=== PATIENT | female | born 1995 | race Caucasian/White ===

== ENCOUNTER 2017-08-23 11:50 | Emergency (ER) | payer OTHER ==
[2017-08-23 11:57] VITALS: RESP 16; TEMP 97.7
--- NOTE | 2017-08-23 12:17 | CPEKG ---
Heart Rate: 85 RR Interval: 706 P-R Interval: 112 QRSD Interval: 86 QT Interval: 356 QTC Interval: 424 P [place]: 59 QRS [place]: 72 T Wave [place]: 50 EKG Severity - OTHERWISE NORMAL ECG - EKG Impression: SINUS ARRHYTHMIA, RATE [id number] Electronically Signed By: Cristobal Beebe 23-Aug-2017 13:03:42
[2017-08-23] MEDS ORDERED: NS 1,000 ML IV ONE (12:20)
--- NOTE | 2017-08-23 12:21 | EDPHY ---
H & P Stated Complaint: Dizzy x 1 wk; wants thyroid checked Source: Patient Exam Limitations: No limitations - Personal History LMP (Females 10-55): 8-14 Days Ago Current Tetanus Diphtheria and Acellular Pertussis (TDAP): Yes - Medical/Surgical History Other PMH: "thyroid issues". chronic neck pain - Social History Smoking Status: Never smoked Time Seen by Provider: 08/23/17 12:19 HPI/ROS: HPI: This is a 22-year-old female who presents with Chief Complaint: Dizzy x 1 wk; wants thyroid checked Location: head Quality: dizziness Duration: 1 week Signs and Symptoms: No fever, no neck stiffness, no headache, no vision changes , no abdominal pain, no nausea, no vomiting, no shortness of breath, positive fatigue, no chest pain Timing: Intermittent episodes Severity: [id number] Context: Patient is a local college student originally from [place] who presents with complaints of intermittent episodes of dizziness, described as lightheaded and faint, that have occurred over the last week approximately 2-3 times. no LOC/syncope. She reports that last weekend for 3 days she went to [place]. Admits to drinking excessively the 1st night and having to stay in bed all day the next day. Several days later she flew to [place] for another vacation and get admits to drinking excessively. She denies recreational drug use. She reports back in [place] before she left for school on April her TSH level was low normal and her PCP suggested repeat thyroid testing 6-8 weeks. Her last menstrual period was 2 weeks ago. Has NuvaRing in place. Denies heavy menstrual cycle. After further questioning patient does admit that prior to the episodes of dizziness occurring she feels like she is having a anxiety or panic attack as she becomes extremely short of breath, feels chest tightness accompanied by bilateral arm numbness that last for several minutes until she is able to calm herself down. Modifying Factors: None Comment: ROS: see HPI Constitutional: No fever, no chills, no weight loss Eyes: No blurred vision Respiratory: No shortness of breath, no cough Cardiovascular: No chest pain Gastrointestinal: No nausea, no vomiting, no diarrhea Genitourinary: No dysuria Extremities: No myalgias Neurologic: No weakness, no numbness Skin: No rashes Hematologic: No bruising, no bleeding MEDICAL/SURGICAL/SOCIAL HISTORY: Medical history: Generally healthy. Does not take any regular medications. Surgical history: Denies Social history: Local college student CONSTITUTIONAL: Extremely well-appearing young adult white female, awake and alert, no obvious distress HEENT: Atraumatic and normocephalic, PERRL, EOMI. Tympanic membranes clear. Oropharynx clear, no exudate and moist pink mucosa. Airway patent. No lymphadenopathy. No meningismus. Cardiovascular: Normal S1/S2, regular rate, regular rhythm, without murmur rub or gallop. PULMONARY/CHEST: Symmetrical and nontender. Clear to auscultation bilaterally. Good air movement. No accessory muscle usage. ABDOMEN: Soft, nondistended, nontender, no rebound, no guarding, no peritoneal signs, no masses or organomegaly. No CVAT. EXTREMITIES: 2/2 pulses, strength 5/5, no deformities, no clubbing, no cyanosis or edema. NEUROLOGICAL: no focal neuro deficits. GCS 15. SKIN: Warm and dry, no erythema. no rash. Good capillary refill. (Karina Lauren) Constitutional: Initial Vital Signs Temperature (C) 36.5 C 08/23/17 11:55 Heart Rate 84 08/23/17 11:55 Respiratory Rate 16 08/23/17 11:55 Blood Pressure 134/89 H 08/23/17 11:55 O2 Sat (%) 98 08/23/17 11:55 O2 Delivery Mode Room Air Allergies/Adverse Reactions: No Known Allergies Allergy (Unverified 08/23/17 11:57) Home Medications: Medication Instructions Recorded Nuvaring 08/23/17 Medical Decision Making - Diagnostics EKG Interpretation: EKG: Complete interpretation has been separately recorded in the [facility] archive. Summary impression: Sinus rhythm, rate 85 (Cristobal Beebe) ED Course/Re-evaluation: Labs, urinalysis, orthostatics, EKG, IV fluids ordered Afebrile. Orthostatics normal Labs completely unremarkable EKG showed no signs of ischemia, arrhythmia Urinalysis shows trace LE, 3-5 WBCs, asymptomatic; will send for urine culture After IV fluids patient reports that she is feeling better. She now advises that she has insomnia that is chronic in nature. She has difficulty falling asleep and staying asleep. Her primary care provider back in [place] has tried her on 5 different medications including melatonin a with no relief. She advises that she has health insurance and therefore unable to be seen at the [facility]. Refer her to [facility]. This patient was seen under the supervision of my secondary supervising physician. I evaluated care for this patient independently. Discussed this patient with Dr. Mcginnis who did not see the patient. The patient was seen in conjunction with Dr. Mcginnis, who saw and evaluated the patient. Patient's presentation, labs/imaging, treatment and plan of care were discussed with secondary supervising physician. (Karina Lauren) Differential Diagnosis: Dizziness including but not limited to peripheral and central causes of vertigo , orthostatic causes including dehydration, and blood loss. (Karina Lauren) Other Provider: PHYSICIAN DOCUMENTATION: The patient was evaluated and managed by the Physician Circuit Court Judge. My co- signature indicates that I have reviewed this chart and I agree with the findings and plan of care as documented. I am the secondary supervising physician. (Cristobal Beebe) - Data Points Laboratory Results: Laboratory Results 08/23/17 12:10 08/23/17 12:10 08/23/17 08/23/17 08/23/17 13:00 12:10 12:10 WBC RBC Hgb Hct MCV MCH MCHC RDW Plt Count MPV Neut % (Auto) Lymph % (Auto) Schleicher % (Auto) Eos % (Auto) Baso % (Auto) Nucleat RBC Rel Count Absolute Neuts (auto) Absolute Lymphs (auto) Absolute Monos (auto) Absolute Eos (auto) Absolute Basos (auto) Absolute Nucleated RBC Immature Gran % Immature Gran # D-Dimer < 0.27 ug/mLFEU ug/mLFEU (0.00-0.50) Sodium Potassium Chloride Carbon Dioxide Anion Gap BUN Creatinine Estimated GFR Glucose Calcium TSH Beta HCG, Qual Urine Color YELLOW Urine Appearance HAZY Urine pH 6.0 (5.0-7.5) Ur Specific [place] 1.021 (1.002-1.030) Urine Protein NEGATIVE (NEGATIVE) Urine Ketones NEGATIVE (NEGATIVE) Urine Blood NEGATIVE (NEGATIVE) Urine Nitrate NEGATIVE (NEGATIVE) Urine Bilirubin NEGATIVE (NEGATIVE) Urine Urobilinogen NEGATIVE EU EU (0.2-1.0) Ur Leukocyte Esterase TRACE H (NEGATIVE) Urine RBC 1-3 /hpf /hpf (0-3) Urine WBC 3-5 /hpf H /hpf (0-3) Ur Epithelial Cells TRACE /lpf /lpf (NONE-1+) Calcium Oxalate Crystal PRESENT /hpf /hpf (NONE-1+) Urine Mucus 1+ /lpf /lpf (NONE-1+) Urine Glucose NEGATIVE (NEGATIVE) Urine Opiates Screen NEGATIVE (NEGATIVE) Urine Barbiturates NEGATIVE (NEGATIVE) Ur Phencyclidine Scrn NEGATIVE (NEGATIVE) Ur Amphetamine Screen NEGATIVE (NEGATIVE) U Benzodiazepines Scrn NEGATIVE (NEGATIVE) Urine Cocaine Screen NEGATIVE (NEGATIVE) U Marijuana (THC) Screen NEGATIVE (NEGATIVE) Monoscreen NEGATIVE (NEGATIVE) 08/23/17 08/23/17 08/23/17 12:10 12:10 12:10 WBC 6.19 10^3/uL 10^3/uL (3.80-9.50) RBC 4.13 10^6/uL L 10^6/uL (4.18-5.33) Hgb 13.7 g/dL g/dL (12.6-16.3) Hct 39.6 % % (38.0-47.0) MCV 95.9 fL fL (81.5-99.8) MCH 33.2 pg pg (27.9-34.1) MCHC 34.6 g/dL g/dL (32.4-36.7) RDW 12.4 % % (11.5-15.2) Plt Count 267 10^3/uL 10^3/uL (150-400) MPV 9.7 fL fL (8.7-11.7) Neut % (Auto) 58.9 % % (39.3-74.2) Lymph % (Auto) 30.0 % % (15.0-45.0) Schleicher % (Auto) 7.4 % % (4.5-13.0) Eos % (Auto) 2.4 % % (0.6-7.6) Baso % (Auto) 1.1 % % (0.3-1.7) Nucleat RBC Rel Count 0.0 % % (0.0-0.2) Absolute Neuts (auto) 3.64 10^3/uL 10^3/uL (1.70-6.50) Absolute Lymphs (auto) 1.86 10^3/uL 10^3/uL (1.00-3.00) Absolute Monos (auto) 0.46 10^3/uL 10^3/uL (0.30-0.80) Absolute Eos (auto) 0.15 10^3/uL 10^3/uL (0.03-0.40) Absolute Basos (auto) 0.07 10^3/uL 10^3/uL (0.02-0.10) Absolute Nucleated RBC 0.00 10^3/uL 10^3/uL (0-0.01) Immature Gran % 0.2 % % (0.0-1.1) Immature Gran # 0.01 10^3/uL 10^3/uL (0.00-0.10) D-Dimer Sodium 143 mEq/L mEq/L (134-144) Potassium 3.8 mEq/L mEq/L (3.5-5.2) Chloride 105 mEq/L mEq/L (97-110) Carbon Dioxide 22 mEq/l mEq/l (22-31) Anion Gap 16 mEq/L mEq/L (8-16) BUN 14 mg/dL mg/dL (7-23) Creatinine 0.7 mg/dL mg/dL (0.6-1.0) Estimated GFR > 60 Glucose 73 mg/dL mg/dL (70-100) Calcium 9.3 mg/dL mg/dL (8.5-10.4) TSH 2.240 uIU/mL uIU/mL (0.465-4.680) Beta HCG, Qual NEGATIVE Urine Color Urine Appearance Urine pH Ur Specific [place] Urine Protein Urine Ketones Urine Blood Urine Nitrate Urine Bilirubin Urine Urobilinogen Ur Leukocyte Esterase Urine RBC Urine WBC Ur Epithelial Cells Calcium Oxalate Crystal Urine Mucus Urine Glucose Urine Opiates Screen Urine Barbiturates Ur Phencyclidine Scrn Ur Amphetamine Screen U Benzodiazepines Scrn Urine Cocaine Screen U Marijuana (THC) Screen Monoscreen Medications Given: Discontinued Medications Sodium Chloride (Ns) 1,000 mls @ 0 mls/hr IV ONCE ONE; Wide Open PRN Reason: Protocol Stop: 08/23/17 12:21 Last Admin: 08/23/17 12:27 Dose: 1,000 mls Departure - Departure Disposition: Home, Routine, Self-Care Clinical Impression: Dizziness, nonspecific Insomnia Qualifiers: Insomnia type: unspecified Qualified Code(s): G47.00 - Insomnia, unspecified Condition: Good Instructions: Dizziness (ED), Lightheadedness (ED), Insomnia (ED) Additional Instructions: Please drink plenty of fluids to prevent dehydration. Get a minimum of 8 hr of sleep per night. Reduce stress as much as possible. Establish care with [facility] to discuss insomnia. Keep follow-up appointment with PCP back in [place] in September. Referrals: [facility],. [Clinic] - As per Instructions
[2017-08-23 12:26] LABS: % IMMATURE GRANULYOCYTES 0.2 % (0.0-1.1); ABSOLUTE IMMATURE GRANULOCYTES 0.01 10^3/uL (0.00-0.10); ADD DIFF? NO; ADD MORPH? NO; ADD SCAN? NO; ATYPICAL LYMPHOCYTE FLAG 20 (0-99); FRAGMENT RBC FLAG 0 (0-99); HEMATOCRIT 39.6 % (38.0-47.0); HEMOGLOBIN 13.7 g/dL (12.6-16.3); LEFT SHIFT FLG 0 (0-99); LIPEMIA HEMOLYSIS FLAG 90 (0-99); MEAN CELL HEMOGLOBIN 33.2 pg (27.9-34.1); MEAN CELL HEMOGLOBIN CONCENTR. 34.6 g/dL (32.4-36.7); MEAN CELL VOLUME 95.9 fL (81.5-99.8); MEAN PLATELET VOLUME 9.7 fL (8.7-11.7); PLATELET CLUMPS FLAG 0 (0-99); PLATELET COUNT 267 10^3/uL (150-400); RED BLOOD CELL COUNT 4.13 10^6/uL (4.18-5.33); RED CELL DISTRIBUTION WIDTH 12.4 % (11.5-15.2)
[2017-08-23 12:46] LABS: ANION GAP 16 mEq/L (8-16); CALCIUM 9.3 mg/dL (8.5-10.4); CARBON DIOXIDE 22 mEq/l (22-31); CHLORIDE 105 mEq/L (97-110); CREATININE 0.7 mg/dL (0.6-1.0); GLOMERULAR FILTRATION RATE > 60; GLUCOSE 73 mg/dL (70-100); POTASSIUM 3.8 mEq/L (3.5-5.2); SODIUM 143 mEq/L (134-144)
[2017-08-23 13:09] LABS: COLOR YELLOW; LEUKOCYTE ESTERASE,URINE TRACE (NEGATIVE); NITRITE,URINE NEGATIVE (NEGATIVE)
[2017-08-23 13:13] LABS: MUCUS 1+ /lpf (NONE-1+)
[2017-08-23 14:30] VITALS: BP 126/95; PULSE 84; O2SAT 95
== END 2017-08-23 14:30 | disposition home or self-care (01) ==
DX: R42 Dizziness and giddiness (principal); G47.00 Insomnia, unspecified; E86.9 Volume depletion, unspecified
CPT/HCPCS: 80305